=== PATIENT | female | born 1965 | race Caucasian/White ===

== ENCOUNTER 2025-03-10 08:06 | Day surgery (SDC) | payer MEDICAID ==
[2025-03-10] VITALS (10 sets, daily range): BP systolic 87–129; BP diastolic 28–79; PULSE 53–70; RESP 11–18; TEMP 97.3; O2SAT 70–100
[~2025-03-10] VITALS: Ht 165.1 cm; Wt 69.0 kg
[~2025-03-10 08:06] MED LIST: CITA-178 PO; HYDR-3964 PO; LORA-268 PO; ZOLP5TAB18 PO; simethicone 40mg/0.6ml oral drops 15ml PO ONE
[2025-03-10] MEDS: ringers solution, lacted 1,000 ML IV SCH (08:54)
[2025-03-10] MEDS ORDERED: midazolam 1 mg/ML 2ml injection ONE (10:31)
[2025-03-10] MEDS ORDERED: fentaNYL/PF 50MCG/1 ML 2ML syringe ONE (10:31)
[2025-03-10] MEDS ORDERED: propofol inj 20 ML IV ONE ×2 (10:41)
== END 2025-03-10 11:31 | disposition home or self-care (01) ==
LOC: PAS 08:06
PROVIDERS: ATTEND Internal Medicine Gastroenterology
DX: K92.1 Melena (principal); K57.30 Diverticulosis of large intestine without perforation or abscess without bleeding; K64.8 Other hemorrhoids; E78.5 Hyperlipidemia, unspecified; F41.9 Anxiety disorder, unspecified; G89.29 Other chronic pain; M50.30 Other cervical disc degeneration, unspecified cervical region; Z87.891 Personal history of nicotine dependence; Z87.442 Personal history of urinary calculi
CPT/HCPCS: 45378; J2250; J2704; J3010; J7120; Z7512; A4615